=== PATIENT | female | born 1980 | race Caucasian/White ===

== ENCOUNTER 2019-11-28 18:54 | Emergency (ER) | payer SELFPAY ==
--- NOTE | 2019-11-28 19:20 | TELE ---
HPI Do you have fever,cough or shortness of breath?: Yes - General Reason For Visit: COVID TESTING History Source: Patient - History of Present Illness Associated Symptoms: reports: fever/chills, headaches. denies: chest pain, cough, shortness of breath Review of Systems - Review of Systems Constitutional: Yes: Fever HEENTM: Yes: Throat Pain. No: Ear Pain Respiratory: No: Cough, Shortness of Breath Cardiac (ROS): No: Chest Pain *Physical Exam - Physical Exam General Appearance: Yes: Appropriately Dressed. No: Apparent Distress HEENT: positive: Normal Voice. negative: Scleral Icterus (R), Scleral Icterus (L) Respiratory/Chest: negative: Respiratory Distress - Medical Decision Making 11/28/19 19:13 38 yo F No sig hx C/o sore throat, HOOD and subj fever since this am No cough, sob, CP Mother visiting from [facility] per pt Had video chat with pt who will proceed to [facility] for covid testing Reasons to come into ED d/w pt Discharge Diagnosis at time of Disposition: Encounter by telehealth for suspected COVID-19 - Referrals - Patient Instructions - Discharge Disposition: HOME
== END 2019-11-28 19:21 | disposition home or self-care (01) ==
LOC: JVIRT 18:54
DX: Z11.59 Encounter for screening for other viral diseases (principal)
CPT/HCPCS: Q3014-GT; U0003